=== PATIENT | female | born 1970 | race Caucasian/White ===

== ENCOUNTER → 2025-01-17 | Outpatient (CLI) | payer BC, SELFPAY ==
--- NOTE | 2025-01-17 12:24 | US_ITS ---
PROCEDURE: THYROID 01/17/2025 REASON FOR EXAM: NODULE TECHNIQUE: THYROID COMPARISON: None FINDINGS: Right thyroid lobe size: 5.2 cm x 1.4 cm 1.4 cm Left thyroid lobe size: 5.6 cm 1.1 cm 1.3 cm Isthmus: 0.27 cm Background parenchymal echotexture is homogeneous. Nodules: There are scattered multiple subcentimeter cysts throughout the Scattered there is a 1.7 cm 1.4 cm x 0.8 cm septated cyst in the lower pole of the left lobe of the thyroid. US/Thyroid IMPRESSION: Multiple small subcentimeter cyst in the right lobe of the thyroid. 1.7 cm 1.4 cm 0.8 cm septated cyst in the lower pole of the left lobe. Sonographic follow-up recommended. TI-RADS category 2. RECOMMENDATION: Based on most suspicious nodule. Nodule size = largest diameter Only evaluate nodule if =>5 mm. Growth > 20% in 2 dimensions = worsening. Follow up to 4 nodules. Recommend biopsy for no more than 2 nodules. Reading Location: [facility]
== END | disposition home or self-care (01) ==
LOC: OPUS 12:22
PROVIDERS: PCP Nurse Practitioner Family; Referring Provider Nurse Practitioner Family; Visit Provider Nurse Practitioner Family
DX: E04.1 Nontoxic single thyroid nodule (principal)
CPT/HCPCS: 76536